=== PATIENT | female | born 1985 | race Caucasian/White ===

== ENCOUNTER → 2018-04-21 | Outpatient (CLI) | payer OTHER ==
[~2018-04-21] MED LIST: CATHETER FLUSH 10 ML SYR IV PRN; IOHEXOL 350 MG/ML 100 ML (OMNIPAQUE 350) VIAL IV ONE; NS 250 ML (IVPB) BAG IV ONE
--- NOTE | 2018-04-21 17:13 | Diagnostic Imaging Report ---
PROCEDURE: CT abdomen and pelvis with contrast, rule out appendicitis. TECHNIQUE: Multiple contiguous axial images were obtained through the abdomen and pelvis after the administration of intravenous contrast. INDICATION: Right lower quadrant pain and mid abdominal pain with nausea, vomiting, and diarrhea. COMPARISON: No prior studies are available for comparison. FINDINGS: The lung bases are clear. No discrete liver mass is seen. The gallbladder is surgically absent. No biliary ductal dilatation is identified. The pancreas and spleen are unremarkable. No adrenal mass is detected. The kidneys are unremarkable. Aorta is non-aneurysmal. The small and large bowel loops are normal in caliber. Appendix is not definitely visualized but no inflammatory process in the right lower quadrant is seen. There is a cyst in the right adnexa measuring 3 cm consistent with an ovarian cyst. The uterus and bladder are unremarkable. There is no free fluid. No definite abdominal or pelvic lymphadenopathy is seen. IMPRESSION: 1. 3 cm right ovarian cyst. 2. Nonvisualized appendix but no definite inflammatory process in the right lower quadrant is identified. Dictated by: Dictated on workstation # [id number]
== END ==
LOC: RAD 15:15
PROVIDERS: ATTEND Nurse Practitioner Family
DX: N83.201 Unspecified ovarian cyst, right side (principal); R19.7 Diarrhea, unspecified
CPT/HCPCS: 74177